=== PATIENT | male | born 1960 | race Caucasian/White ===

== ENCOUNTER 2017-01-27 22:19 | Inpatient (IN) | payer OTHER ==
[~2017-01-27] VITALS: Ht 177.8 cm; Wt 112.0 kg
--- NOTE | 2017-01-27 22:25 | ERD ---
ER Documentation Chief Complaint Chief Complaint chest pain HPI This is a 56-year-old male with a history of hypertension and traumatic aortic dissection requiring a thoracotomy while playing football when he was younger who is now presenting with several hours of midsternal moderate substernal chest pain with lightheadedness, diaphoresis, nausea and dyspnea. The patient was hoping that the symptoms would go away on its own, but he ultimately called an ambulance because they persisted. The patient does not endorse having had a heart attack before, but he is concerned that he could be having a heart attack now. He is quite anxious. He notes that the pain is different from when he had his aortic dissection. He has no pain radiating to the back or neck or arms. The patient denies feeling sick recently. The patient denies fever or chills. The patient has had no headache or vision changes. The patient does not endorse neck or back pain. The patient denies abdominal pain or changes to bowel movements or urination. The patient has had no focal deficits. The patient has had no weakness or numbness or tingling to the face or extremities. The patient was given full dose aspirin and 2 nitro sprays by the paramedics prior to arrival. While his chest pain did not resolve, it did improve and his diaphoresis stopped. The paramedics did obtain a 12-lead that is concerning for STEMI with ST elevations in V1 and 2. ROS All systems reviewed and are negative except as per history of present illness. Allergies Allergies: Coded Allergies: No Known Allergy (Unverified , 01/28/17) PMhx/Soc History of Surgery: Yes (Thoracotomy, aortic dissection repair with stenting) Anesthesia Reaction: No Hx Neurological Disorder: No Hx Respiratory Disorders: No Hx Cardiac Disorders: Yes (Hypertension, aortic dissection) Hx Psychiatric Problems: No Hx Miscellaneous Medical Probl: No FmHx Family History: No coronary disease, No diabetes Physical Exam Vitals Vital Signs Date Time Temp Pulse Resp B/P Pulse Ox O2 Delivery O2 Flow Rate FiO2 01/27/17 22:26 69 18 100/75 98 Physical Exam Const: Mild distress, well-developed, well-nourished Head: Atraumatic Eyes: Normal Conjunctiva. Extraocular movements intact. ENT: Normal External Ears, Nose and Mouth. Neck: Full range of motion. ~ No meningismus. Resp: Clear to auscultation bilaterally Cardio: Regular rate and rhythm, no murmurs Abd: Soft, non tender, non distended. Normal bowel sounds Skin: No petechiae or rashes, + diaphoresis Back: No midline or flank tenderness Ext: No cyanosis, or edema Neur: Awake and alert, oriented 4. Cranial nerves intact. No facial droop. Normal strength and sensation in all extremities. Coordination with finger to nose normal. Psych: Anxious appearing Result Diagram: 01/27/175 01/27/17 2215 Results 24 hrs Laboratory Tests Test 01/27/17 22:15 White Blood Count 13.410^3/ul Red Blood Count 5.8110^6/ul Hemoglobin 17.4g/dl Hematocrit 49.7% Mean Corpuscular Volume 85.5fl Mean Corpuscular Hemoglobin 29.9pg Mean Corpuscular Hemoglobin Concent 35.0g/dl Red Cell Distribution Width 12.9% Platelet Count 36853^3/UL Mean Platelet Volume 11.0fl Neutrophils % 71.8% Lymphocytes % 15.3% Monocytes % 12.4% Eosinophils % 0.0% Basophils % 0.3% Nucleated Red Blood Cells % 0.0/100WBC Neutrophils # 9.610^3/ul Lymphocytes # 2.110^3/ul Monocytes # 1.710^3/ul Eosinophils # 0.010^3/ul Basophils # 0.010^3/ul Nucleated Red Blood Cells # 0.010^3/ul Sodium Level 142mmol/L Potassium Level 3.8mmol/L Chloride Level 104mmol/L Carbon Dioxide Level 30mmol/L Anion Gap 12 Blood Urea Nitrogen 14mg/dl Creatinine 1.10mg/dl Glucose Level 128mg/dl Calcium Level 9.8mg/dl Troponin I 49.900ng/ml Current Medications Medications (Trade) Dose Ordered Sig/Lauren Route PRN Reason Start Time Stop Time Status Last Admin Dose Admin IV Flush 10 ml 10 ml STK-MED ONCE .ROUTE 01/27/17 23:05 01/27/17 23:06 DC 01/27/17 23:22 Sodium Chloride (NS) 100 ml @ ud STK-MED ONCE .ROUTE 01/27/17 23:05 01/27/17 23:06 DC 01/27/17 23:22 Iohexol (Omnipaque 300mg/ ml) 150 ml STK-MED ONCE .ROUTE 01/27/17 23:05 01/27/17 23:06 DC 01/27/17 23:23 Heparin Sodium (Porcine) (Heparin (1000 Units/ml)) 10,000 unit STK-MED ONCE .ROUTE 01/27/17 23:08 01/27/17 23:09 DC Lidocaine (Xylocaine 1% (Mdv) 20 ml) 20 ml STK-MED ONCE .ROUTE 01/27/17 23:08 01/27/17 23:09 DC Iodixanol (Visipaque Locm) 50 ml STK-MED ONCE .ROUTE 01/27/17 23:08 01/27/17 23:09 DC Iodixanol 100 ml 100 ml STK-MED ONCE .ROUTE 01/27/17 23:08 01/27/17 23:09 DC Heparin Sodium/ Sodium Chloride (Heparin 1000 Units/NS (A-Line)) 1,500 ml @ ud STK-MED ONCE .ROUTE 01/27/17 23:08 01/27/17 23:09 DC Fentanyl (Sublimaze) 100 mcg STK-MED ONCE .ROUTE 01/27/17 23:09 01/27/17 23:10 DC Verapamil HCl (Verapamil) 5 mg STK-MED ONCE .ROUTE 01/27/17 23:09 01/27/17 23:10 DC Nitroglycerin 1000 mcg 1,000 mcg STK-MED ONCE .ROUTE 01/27/17 23:09 01/27/17 23:10 DC Sodium Chloride (NS) 500 ml @ ud STK-MED ONCE .ROUTE 01/27/17 23:09 01/27/17 23:10 DC Midazolam HCl (Versed) 2 mg STK-MED ONCE .ROUTE 01/27/17 23:09 01/27/17 23:10 DC Miscellaneous Information (* Miscellaneous Pharmacy Order) HOLD all METFORMIN ... ONCE ONCE XX 01/28/17 00:00 01/28/17 01:13 DC 01/28/17 00:00 Morphine Sulfate (morphine) 2 mg Q2H PRN IV FOR NON CARDIAC PAIN (4-10) 01/28/17 00:00 01/28/17 01:19 Procedures/MDM MDM The patient's presentation warrants further investigation. I am concerned that the patient could be having a heart attack. The paramedics 12-lead was not as impressive as initially reported, but it did demonstrate 1 mm elevations in the 1 and 2. An EKG will be performed immediately in the emergency department. Blood work will also be sent off immediately. LABS The patient's blood work was obtained and reviewed. The patient's CBC shows mild leukocytosis without shift, likely related to a stress reaction.. The patient is afebrile and does not appear systemically ill. I do not suspect a systemic infection. The patient is not anemic today. The patient's platelet count is unremarkable. The patient's CMP shows no signs of metabolic or electrolyte abnormality. The patient has normal renal and hepatic function testing. The patient's troponin is 49. EKG EKG read by me: Rate/Rhythm: Regular rate and rhythm at a rate of 71 Intervals: Normal [facility]: Normal ST elevations in aVR and V2 which are discordant with ST depressions in the inferior leads and T-wave inversions in leads I and aVL concerning for ischemia Impression: Concerning for cardiac ischemia Repeat EKG read by me as well, performed 30 minutes after the original: Rate/Rhythm: Regular rate and rhythm at a rate of 68 Intervals: Normal [facility]: Normal ST elevations in leads I, aVL and V2 with reciprocal ST depressions in the inferior leads of 3 and aVF which is more suspicious for an acute STEMI Impression: Acute STEMI IMAGING CTA chest FINDINGS: No filling defects are identified within the pulmonary arteries to suggest pulmonary artery thrombosis. There is a proximal descending aortic graft with adjacent surgical clips. Thoracic aorta is normal caliber without aneurysm or dissection. There is no mediastinal or hilar lymphadenopathy or mass. Heart is normal size. No pericardial fluid or thickening. There is mild dependent atelectasis. No focal infiltrate. There is no pleural effusion. There is no pneumothorax. There are no fractures. Chest wall is unremarkable. Imaging obtained through the upper abdomen reveals no acute abnormality. IMPRESSION: 1. No evidence for pulmonary embolus. 2. Status post proximal descending aorta graft. No aortic aneurysm or dissection. 3. Mild dependent atelectasis. 4. No focal infiltrate. Electronically viewed and signed by .Melo Mendez MD, on 01/27/2017 23:08 TREATMENT/DISPOSITION The patient's first EKG was obtained immediately and a code STEMI was called after evaluation of this EKG. In discussion with the workers compensation legal secretary on-call, Dr. Hamm, his first EKG was borderline. In order to ensure that it is not related to his previous pathology of an aortic dissection, a CTA of the chest was performed immediately that did not reveal any obvious aortic pathology. When the patient returned, a repeat EKG was obtained that demonstrated progression in the lateral leads of 1 and aVL, which was more ominous. The patient's troponin also came back significantly high. The decision was made to take patient to the Hr Consultant at this time. The patient had already received full dose aspirin prior to arrival to the emergency department. The patient was on his way to the Hr Consultant prior to initiation of heparin. At this time, I feel that the patient requires admission for further evaluation and management. The patient will be admitted to Panel in accordance with the patient's insurance. The patient was accepted by Dr. Zuñiga at 11:18 PM on January 27, 2017 to the ICU after cardiac catheterization. The patient's blood pressure was elevated at greater than 120/80 while in the emergency department. The patient was otherwise stable with no evidence of hypertensive urgency or emergency. The patient will require reevaluation of his blood pressure in the hospital. CRITICAL CARE NOTE Time: 30 minutes excluding all billable procedures. Treatments/Evaluations: Evaluation of the patient's medical record including previous records & current laboratory/imaging studies, close monitoring, potential interventions if hemodynamically unstable or cardiopulmonary decline or neurologic decline, maintaining tight fluid balance, any discussions with the family regarding the patient's status and prognosis. Departure Diagnosis: Primary Impression: ST elevation myocardial infarction (STEMI) Involved coronary artery: unspecified coronary artery Qualified Code: I21.3 - ST elevation myocardial infarction (STEMI), unspecified artery Condition: JOSE Mitchell MD Jan 27, 2017 22:25
[2017-01-27] MEDS ORDERED: SOD CHLORIDE 0.9% 100 ML ONE (23:05)
[2017-01-27] MEDS ORDERED: IOHEXOL 300MG/ML 150 ML BTL ONE (23:05)
[2017-01-27] MEDS ORDERED: LIDOCAINE 1% (MDV) 20 ML INJ ONE (23:08)
[2017-01-27] MEDS ORDERED: IODIXANOL LOCM 50 ML BTL ONE (23:08)
[2017-01-27] MEDS ORDERED: HEPARIN 1000 UNITS/ML 10 ML INJ ONE (23:08)
[2017-01-27] MEDS ORDERED: IODIXANOL LOCM 100 ML BTL ONE (23:08)
--- NOTE | 2017-01-27 23:08 | RADRPT ---
PROCEDURE: CT Chest with IV contrast. CLINICAL INDICATION: Chest pain. TECHNIQUE: CT scan of the chest was performed on a multidetector scanner. The patient was scanned following the uncomplicated intravenous administration of 100 cc of Omnipaque-300 contrast. 3D, co hussain and sagittal reformatted images were obtained from the axial source images. Images were review ed on a high-resolution PACS workstation. The total exam CTDlvol = 90 mGy and DLP = 768 mGy-cm. One of the following 3 dose reduction techniques were used: Automated exposure control; adjustment of th e mA and/or kV according to patient size; or use of iterative reconstruction technique. COMPARISON: None available FINDINGS: No filling defects are identified within the pulmonary arteries to suggest pulmonary artery thrombos is. There is a proximal descending aortic graft with adjacent surgical clips. Thoracic aorta is nor mal caliber without aneurysm or dissection. There is no mediastinal or hilar lymphadenopathy or mas s. Heart is normal size. No pericardial fluid or thickening. There is mild dependent atelectasis. No focal infiltrate. There is no pleural effusion. There is no pneumothorax. There are no fractures. Chest wall is unremarkable. Imaging obtained through the upper abdomen reveals no acute abnormality. IMPRESSION: 1. No evidence for pulmonary embolus. 2. Status post proximal descending aorta graft. No aortic aneurysm or dissection. 3. Mild dependent atelectasis. 4. No focal infiltrate. RPTAT: HMVK .Melo Mendez MD, MD Date Time Electronically viewed and signed by .Melo Mendez MD, MD on 01/27/2017 23:08 .K/
[2017-01-27] MEDS ORDERED: MIDAZOLAM 1 MG/ML 2 ML INJ ONE (23:09)
[2017-01-27] MEDS ORDERED: VERAPAMIL 5 MG INJ ONE (23:09)
[2017-01-27] MEDS ORDERED: FENTAnyl 50 MCG/ML VIAL ONE (23:09)
[2017-01-27] MEDS ORDERED: SOD CHLORIDE 0.9% 500 ML ONE (23:09)
[2017-01-27] MEDS ORDERED: NITROGLYCERIN (IC) 100 MCG/ML INJ ONE (23:09)
[2017-01-28] VITALS (22 sets, daily range): BP systolic 118–150; BP diastolic 71–118; PULSE 62–75; RESP 17–24; Ht 177.8 cm; Wt 112.0 kg
--- NOTE | 2017-01-28 00:15 | CONS ---
Date/Time of Note Date/Time of Note DATE: 01/28/17 TIME: 00:15 Assessment/Plan Assessment/Plan Chief Complaint/Hosp Course Lateral STEMI: No obstructive lesions were found but likely a real event as slightly slow flow in LAD with LV gram showing LAD territory wall motion abnormalities and troponin eventually 49, which would be consistent with either spontaneous recannulization or spasm. CAD: no obstructive lesions found Ischemic cardiomyopathy: EF 40-45% by LV-gram with LAD territory WMA H/o proximal descending thoracic aorta repair for traumatic dissection HTN -continue ASA 81mg indefinitely -plavix 75mg one year though ok to stop for procedures as no stent -lipitor -coreg -ACEI/ARB if renal function stable -echo -Utox (though pt adamantly denies drug use) Problems: Consultation Date/Type/Reason Admit Date/Time Date of Consultation: Jan 28, 2017 Referring Provider: JOSE SHAH MD Hx of Present Illness 56 yo M with a h/o traumatic aortic dissection s/p surgical repair 40 years ago , HTN, who presented with chest pain. The EKG in the field showed ST elevation V1 and V2 for which the pt was brought for possible cath. On arrival he only had borderline ST elevation in lead V2 and ST depression inferior leads as well as LALY in aVR. Due to his prior aortic dissection/repair a CT was obtained to rule out aneurysm and/or dissection. In the meantime a repeat EKG showed ST elevation leads I and aVL so once his CT was negative for dissection, he was taken to the cardiac catheterization technician for emergent cath. Cath showed nonobstructive CAD but LAD territory wall motion abnormalities and trop eventually came back at 49. Pt apparently was doing well until this am when he started to have chest pain. He denies drug abuse. He was having chest pain on the cath table but this resolved before injection of the coronaries and he remained asymptomatic. per HPI Past Medical History per HPI Exam/Review of Systems Vital Signs Vitals Vital Signs Date Time Temp Pulse Resp B/P Pulse Ox O2 Delivery O2 Flow Rate FiO2 01/27/17 22:26 69 18 100/75 98 Exam Constitutional: alert, oriented Psych: nl mood/affect, no complaints Head: atraumatic, normocephalic Neck: No jvd Respiratory: clear to auscultation, No crackles/rales Cardiovascular: regular rate and rhythm, systolic murmur (2/6 USMAN), No edema Gastrointestinal: non-tender, soft Extremities: normal pulses Neurological: nl mental status, nl speech Skin: No rash or lesions Results Result Diagram: 01/27/17221401/27/172214 Results 24 hrs Laboratory Tests Test 01/27/17 22:15 White Blood Count 13.4 H Red Blood Count 5.81 Hemoglobin 17.4 Hematocrit 49.7 Mean Corpuscular Volume 85.5 Mean Corpuscular Hemoglobin 29.9 Mean Corpuscular Hemoglobin Concent 35.0 Red Cell Distribution Width 12.9 Platelet Count 278 Mean Platelet Volume 11.0 H Neutrophils % 71.8 Lymphocytes % 15.3 Monocytes % 12.4 H Eosinophils % 0.0 Basophils % 0.3 Nucleated Red Blood Cells % 0.0 Neutrophils # 9.6 H Lymphocytes # 2.1 Monocytes # 1.7 H Eosinophils # 0.0 Basophils # 0.0 Nucleated Red Blood Cells # 0.0 Sodium Level 142 Potassium Level 3.8 Chloride Level 104 Carbon Dioxide Level 30 Anion Gap 12 Blood Urea Nitrogen 14 Creatinine 1.10 Glucose Level 128 Calcium Level 9.8 Troponin I 49.900 *H RANJIT CHACON Jan 28, 2017 00:15
--- NOTE | 2017-01-28 00:15 | OPR ---
Date/Time of Note Date/Time of Note DATE: 01/28/17 TIME: 00:01 Operative Report Preoperative Diagnosis lateral STEMI Postoperative Diagnosis same, nonobstructive CAD, cardiomyopathy Surgeon see signature line Turn Down Attendant none Anesthesia Type: moderate sedation Estimated Blood Loss: minimal Transfusion none Specimen none Grafts/Implants none Complications none Procedure Description Procedure Date:01/27/2017 [employer] Director/surgeon:Chito Hamm MD. Procedures Performed: 1)Left heart catheterization with selective left and right coronary angiography. 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 The EKG in the field showed ST elevation V1 and V2 for which the pt was brought for possible cath. On arrival he only had borderline ST elevation in lead V2 and ST depression inferior leads as well as LALY in aVR. Due to his prior aortic dissection/repair a CT was obtained to rule out aneurysm and/or dissection. In the meantime a repeat EKG showed ST elevation leads I and aVL so once his CT was negative for dissection, he was taken to the laboratory miller for emergent cath. Description of Procedure: After informed consent, the patient was brought to the cardiac catheterization lab. The procedure site was prepped and draped in usual manner. The patient was premedicated with versed 1 mg and fentanyl 25 mcg. 3 mL lidocaine was injected into the right wrist. Next using the posterior wall technique, the 6/ 5 kiswahili sheath was inserted into the right radial artery. Next using the JR4 and JL 3.0 guide, selective angiography of the left and right coronary arteries were obtained. The pigtail was then advanced into the ventricle and hemodynamics obtained. Left ventricle angiography was obtained in 2 views. Next all equipment was removed and hemostasis was obtained by TR band. Findings: Anatomy/Hemodynamics: Left main: normal LAD: mild plaquing with slightly slow flow but no obstructive lesions Diagonal 1 normal Diagonal 2 tapers to a very small vessel and has proximal 40-50% Circumflex: 20-30% plaquing Obtuse marginal: luminal irregularities RCA:20-30% plaquing PDA:luminal irregularities PLV:luminal irregularities LV angiography: EF 40-45%, anterior and apical severe hypokinesis LV-Ao:no gradient LVEDP: 21 mmHg Contrast used: 120 mL Fluoroscopy time: 4.9 min Estimated blood loss<10 mL. Specimen: none Grafts/implants: none Complications: none Assessment: Lateral STEMI: No obstructive lesions were found but likely a real event as slightly slow flow in LAD with LV gram showing LAD territory wall motion abnormalities and troponin eventually 49, which would be consistent with either spontaneous recannulization or spasm. CAD: no obstructive lesions found Ischemic cardiomyopathy: EF 40-45% by LV-gram with LAD territory WMA H/o proximal descending thoracic aorta repair for traumatic dissection HTN Plan: -continue ASA 81mg indefinitely -plavix 75mg one year though ok to stop for procedures as no stent -lipitor -coreg -ACEI/ARB if renal function stable -Utox (though pt adamantly denies drug use) CHITO HAMM Jan 28, 2017 00:15
--- NOTE | 2017-01-28 00:15 | OPR ---
Date/Time of Note Date/Time of Note DATE: 01/28/17 TIME: 00:01 Operative Report Preoperative Diagnosis lateral STEMI Postoperative Diagnosis same, nonobstructive CAD, cardiomyopathy Surgeon see signature line Injection Machine Operator none Anesthesia Type: moderate sedation Estimated Blood Loss: minimal Transfusion none Specimen none Grafts/Implants none Complications none Procedure Description Procedure Date:01/27/2017 Photo Intern/surgeon:Chito Hamm MD. Procedures Performed: 1)Left heart catheterization with selective left and right coronary angiography. 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 The EKG in the field showed ST elevation V1 and V2 for which the pt was brought for possible cath. On arrival he only had borderline ST elevation in lead V2 and ST depression inferior leads as well as LALY in aVR. Due to his prior aortic dissection/repair a CT was obtained to rule out aneurysm and/or dissection. In the meantime a repeat EKG showed ST elevation leads I and aVL so once his CT was negative for dissection, he was taken to the geotechnical laboratory technician for emergent cath. Description of Procedure: After informed consent, the patient was brought to the cardiac catheterization lab. The procedure site was prepped and draped in usual manner. The patient was premedicated with versed 1 mg and fentanyl 25 mcg. 3 mL lidocaine was injected into the right wrist. Next using the posterior wall technique, the 6/ 5 spanish sheath was inserted into the right radial artery. Next using the JR4 and JL 3.0 guide, selective angiography of the left and right coronary arteries were obtained. The pigtail was then advanced into the ventricle and hemodynamics obtained. Left ventricle angiography was obtained in 2 views. Next all equipment was removed and hemostasis was obtained by TR band. Findings: Anatomy/Hemodynamics: Left main: normal LAD: mild plaquing with slightly slow flow but no obstructive lesions Diagonal 1 normal Diagonal 2 tapers to a very small vessel and has proximal 40-50% Circumflex: 20-30% plaquing Obtuse marginal: luminal irregularities RCA:20-30% plaquing PDA:luminal irregularities PLV:luminal irregularities LV angiography: EF 40-45%, anterior and apical severe hypokinesis LV-Ao:no gradient LVEDP: 21 mmHg Contrast used: 120 mL Fluoroscopy time: 4.9 min Estimated blood loss<10 mL. Specimen: none Grafts/implants: none Complications: none Assessment: Lateral STEMI: No obstructive lesions were found but likely a real event as slightly slow flow in LAD with LV gram showing LAD territory wall motion abnormalities and troponin eventually 49, which would be consistent with either spontaneous recannulization or spasm. CAD: no obstructive lesions found Ischemic cardiomyopathy: EF 40-45% by LV-gram with LAD territory WMA H/o proximal descending thoracic aorta repair for traumatic dissection HTN Plan: -continue ASA 81mg indefinitely -plavix 75mg one year though ok to stop for procedures as no stent -lipitor -coreg -ACEI/ARB if renal function stable -Utox (though pt adamantly denies drug use) CHITO HAMM Jan 28, 2017 00:15
--- NOTE | 2017-01-28 00:15 | OPR ---
Date/Time of Note Date/Time of Note DATE: 01/28/17 TIME: 00:01 Operative Report Preoperative Diagnosis lateral STEMI Postoperative Diagnosis same, nonobstructive CAD, cardiomyopathy Surgeon see signature line Senior Sales Associate none Anesthesia Type: moderate sedation Estimated Blood Loss: minimal Transfusion none Specimen none Grafts/Implants none Complications none Procedure Description Procedure Date:01/27/2017 Wind Energy Engineer/surgeon:Chito Hamm MD. Procedures Performed: 1)Left heart catheterization with selective left and right coronary angiography. 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 The EKG in the field showed ST elevation V1 and V2 for which the pt was brought for possible cath. On arrival he only had borderline ST elevation in lead V2 and ST depression inferior leads as well as LALY in aVR. Due to his prior aortic dissection/repair a CT was obtained to rule out aneurysm and/or dissection. In the meantime a repeat EKG showed ST elevation leads I and aVL so once his CT was negative for dissection, he was taken to the cleaning laborer for emergent cath. Description of Procedure: After informed consent, the patient was brought to the cardiac catheterization lab. The procedure site was prepped and draped in usual manner. The patient was premedicated with versed 1 mg and fentanyl 25 mcg. 3 mL lidocaine was injected into the right wrist. Next using the posterior wall technique, the 6/ 5 icelandic sheath was inserted into the right radial artery. Next using the JR4 and JL 3.0 guide, selective angiography of the left and right coronary arteries were obtained. The pigtail was then advanced into the ventricle and hemodynamics obtained. Left ventricle angiography was obtained in 2 views. Next all equipment was removed and hemostasis was obtained by TR band. Findings: Anatomy/Hemodynamics: Left main: normal LAD: mild plaquing with slightly slow flow but no obstructive lesions Diagonal 1 normal Diagonal 2 tapers to a very small vessel and has proximal 40-50% Circumflex: 20-30% plaquing Obtuse marginal: luminal irregularities RCA:20-30% plaquing PDA:luminal irregularities PLV:luminal irregularities LV angiography: EF 40-45%, anterior and apical severe hypokinesis LV-Ao:no gradient LVEDP: 21 mmHg Contrast used: 120 mL Fluoroscopy time: 4.9 min Estimated blood loss<10 mL. Specimen: none Grafts/implants: none Complications: none Assessment: Lateral STEMI: No obstructive lesions were found but likely a real event as slightly slow flow in LAD with LV gram showing LAD territory wall motion abnormalities and troponin eventually 49, which would be consistent with either spontaneous recannulization or spasm. CAD: no obstructive lesions found Ischemic cardiomyopathy: EF 40-45% by LV-gram with LAD territory WMA H/o proximal descending thoracic aorta repair for traumatic dissection HTN Plan: -continue ASA 81mg indefinitely -plavix 75mg one year though ok to stop for procedures as no stent -lipitor -coreg -ACEI/ARB if renal function stable -Utox (though pt adamantly denies drug use) CHITO HAMM Jan 28, 2017 00:15
[2017-01-28] MEDS ORDERED: CLOPIDOGREL 300 MG TAB ONE (00:16)
[2017-01-28] MEDS ORDERED: SOD CHLORIDE 0.9% 1,000 ML IV SCH (01:00)
[2017-01-28] MEDS ORDERED: ACETAMINOPHEN 650MG/20.3ML CUP PO PRN (01:00)
[2017-01-28] MEDS ORDERED: morphine 2 MG INJ IV PRN (01:00)
[2017-01-28] MEDS: morphine 2 MG INJ IV PRN ×4 (01:19→09:11)
[2017-01-28] MEDS ORDERED: KETOROLAC 30 MG INJ IV STA (03:17)
[2017-01-28] MEDS ORDERED: DIAZEPAM 5 MG/ML SYG IV ONE (03:30)
[2017-01-28] MEDS: PANTOPRAZOLE 40 MG INJ IV SCH (06:05)
--- NOTE | 2017-01-28 06:12 | HP ---
Date/Time of Note Date/Time of Note DATE: 01/28/17 TIME: 05:47 Assessment/Plan VTE Prophylaxis VTE Prophylaxis Intervention: SCD's Lines/Catheters IV Catheter Type [facility]from [facility]): Peripheral IV Urinary Cath still in place: No Assessment/Plan Chief Complaint/Hosp Course This is a 56-year-old male being admitted to the ICU floor for: #1 acute STEMI: Cath report: Showed : No obstructive lesions were found but likely a real event as slightly slow flow in LAD with LV gram showing LAD territory wall motion abnormalities and troponin eventually 49, which would be consistent with either spontaneous recannulization or spasm. No obstructive lesions were found. EF 40-45% by LV-gram with LAD territory WMA. Patient did have an initial troponin elevation of 49. Will continue to trend cardiac enzymes. Will order post cath EKG. as per cardiology recommendations patient will be started on aspirin 81 mg,plavix 75mg one year though ok to stop for procedures as no stent, Lipitor, Coreg. Patient's renal function remains stable can also initiate MARNI/ARB. Will also obtain a urine drug screen. 2D echocardiogram in the a.m. Cardiology consultation. #2 hypertension: Need to confirm patient's home medications. Continue to monitor his blood pressures. #3 hypothyroidism: We will need to confirm patient's home medication and dosage. Will check a TSH level. #4 DVT GI prophylaxis: SCDs, Protonix Further treatment strategy will be implemented as per the clinical course Greater than 35 minutes of critical care time was spent on the care and management of this patient. Problems: HPI/ROS Admit Date/Time Admit Date/Time Hx of Present Illness Chief complaint: Left-sided chest pain The following history was obtained from the ED physician documentation as well as the child watch attendant and from my own personal exam with the patient. This is a 56-year-old male with a history of hypertension and traumatic aortic dissection requiring a thoracotomy while playing football when he was younger who presented with several hours of left-sided chest pain with lightheadedness, diaphoresis, nausea and dyspnea. Patient stated that his pain started when he was at work around 10 AM yesterday and he dealt with it throughout the day at work. The patient was hoping that the symptoms would go away on its own, but he ultimately called an ambulance because they persisted. The patient does not endorse having had a heart attack before, but he is concerned that he could be having a heart attack now. As per the ED physician documentation when he did arrive he is quite anxious and he did state that his pain was quite different than the one that he experienced when he had his aortic dissection. He was not complaining of any back pain radiating to the back or neck or to the arms. The patient was given full dose aspirin and 2 nitro sprays by the paramedics prior to arrival. While his chest pain did not resolve, it did improve and his diaphoresis stopped. The paramedics did obtain a 12-lead that is concerning for STEMI with ST elevations in V1 and 2. STEMI protocol was initiated and patient was taken to the [facility] Loss [facility] Manager by the child watch attendant on-call. [facility] Loss Centre Manager report : No obstructive lesions were found but likely a real event as slightly slow flow in LAD with LV gram showing LAD territory wall motion abnormalities and troponin eventually 49, which would be consistent with either spontaneous recannulization or spasm. Patient was then subsequently transferred to the ICU for closer monitoring. Upon my examination patient was sitting in bed he stated that he still was experiencing left-sided chest pain. He was denying any shortness of breath. He stated his pain was 7 out of 10 and on the left side without any radiation. Upon physical examination when I palpated his left chest he retracted to the pain. Upon reexamination patient again retracted to the pain upon palpation of the chest. Patient at that time was not diaphoretic or short of breath or appear in any acute distress. Allergies: NKDA Medications: See LUCIO GRAHAM Const: As per HPI Eyes : No pain discharge or redness or change in visual acuity ENT: No pain, sore throat, congestion, congestion, dysphagia or discharge Respiratory: No shortness of breath, cough, sputum, wheezing, or pleuritic pain Cardiovascular: As per HPI GI : no change in appetite, abdominal pain, nausea, vomiting, diarrhea, constipation, or change in the color his stool Genitourinary: No dysuria, hematuria, flank pain , discharge or CVA tenderness Musculoskeletal: As per HPI Skin: No rash, bruising or hives Neuro: No headache, dizziness, syncope, seizure, focal weakness Endocrine: No polyuria, polydipsia, temperature intolerance Psych: No hallucination, depression, anxiety or suicidal ideation Psychological: nl mood/affect, no complaints PMH/Family/Social Past Medical History Hypertension, hypothyroidism Past Surgical History Aortic dissection repair, cardiac cath today, bilateral eye surgeries Family History Significant Family History: other (Thyroid disorder) Social History Alcohol Use: occasionally Smoking Status: Current every day smoker (Half pack per day 30 years) Drug Use: none Exam/Review of Systems Vital Signs Vitals Vital Signs Date Time Temp Pulse Resp B/P Pulse Ox O2 Delivery O2 Flow Rate FiO2 01/28/17 04:00 75 01/28/17 04:00 98.4 21 125/88 95 Room Air 01/28/17 01:30 2.0 Intake and Output 01/27/17 01/27/17 01/28/17 15:00 23:00 07:00 Intake Total 180 ml Balance 180 ml Exam Exam General: She was seen and examined at the bedside after undergoing cardiac catheterization, he was complaining of pain to his left chest however he was not in any acute distress HEENT: Atraumatic, normocephalic. The pupils are equal, round and reactive. Extraocular motor are intact Neck: Supple with full range of motion. No rigidity or meningismus Chest: Tenderness to palpation of the left anterior chest Lungs: Clear to auscultation bilaterally no crackles rales or wheezing Heart: Normal S1-S2, Regular rhythm and rate. Systolic murmur Abdomen: Soft , nontender, nondistended , bowel sounds are present. No guarding no rebound tenderness , No masses or organomegaly. No costovertebral temporal angle mass Extremities: Normal to inspection, no edema no cyanosis Neurologic: Normal mental status, speech normal, cranial nerves II through XII are intact, motor and sensory are intact, no focal weakness Additional Comments PROCEDURE: CT Chest with IV contrast. CLINICAL INDICATION: Chest pain. TECHNIQUE: CT scan of the chest was performed on a multidetector scanner. The patient was scanned following the uncomplicated intravenous administration of 100 cc of Omnipaque-300 contrast. 3D, coronal and sagittal reformatted images were obtained from the axial source images. Images were reviewed on a high-resolution PACS workstation. The total exam CTDlvol = 90 mGy and DLP = 768 mGy-cm. One of the following 3 dose reduction techniques were used: Automated exposure control; adjustment of the mA and/or kV according to patient size; or use of iterative reconstruction technique. COMPARISON: None available FINDINGS: No filling defects are identified within the pulmonary arteries to suggest pulmonary artery thrombosis. There is a proximal descending aortic graft with adjacent surgical clips. Thoracic aorta is normal caliber without aneurysm or dissection. There is no mediastinal or hilar lymphadenopathy or mass. Heart is normal size. No pericardial fluid or thickening. There is mild dependent atelectasis. No focal infiltrate. There is no pleural effusion. There is no pneumothorax. There are no fractures. Chest wall is unremarkable. Imaging obtained through the upper abdomen reveals no acute abnormality. IMPRESSION: 1. No evidence for pulmonary embolus. 2. Status post proximal descending aorta graft. No aortic aneurysm or dissection. 3. Mild dependent atelectasis. 4. No focal infiltrate. RPTAT: HMVK .Melo Mendez MD, Date Time Electronically viewed and signed by .Melo Mendez MD, on 01/27/2017 23:08 .K/ CC: JOSE SHAH MD EKG : Rate/Rhythm: Regular rate and rhythm at a rate of 71 Intervals: Normal [place]: Normal ST elevations in aVR and V2 which are discordant with ST depressions in the inferior leads and T-wave inversions in leads I and aVL concerning for ischemia Impression: Concerning for cardiac ischemia Repeat EKG, performed 30 minutes after the original: Rate/Rhythm: Regular rate and rhythm at a rate of 68 Intervals: Normal [place]: Normal ST elevations in leads I, aVL and V2 with reciprocal ST depressions in the inferior leads of 3 and aVF which is more suspicious for an acute STEMI Impression: Acute STEMI As per ED physician documentation Labs Result Diagram: 01/27/17221401/27/172214 Medications Medications Current Medications Morphine Sulfate (morphine) 2 mg Q2H PRN IV FOR NON CARDIAC PAIN (4-10) Last administered on 01/28/17t 05:00; Admin Dose 2 MG; Start 01/28/17 at 00:00 Aspirin (Aspirin) 81 mg DAILY PO ; Start 01/28/17 at 09:00 Clopidogrel Bisulfate 75 mg 75 mg DAILY PO ; Start 01/28/17 at 09:00 Sodium Chloride (NS) 1,000 ml @ 60 mls/hr [id number] IV Last administered on 01/28t 01:18; Admin Dose 60 MLS/HR; Start 01/28/17 at 01:00 Acetaminophen (Tylenol Liquid) 650 mg Q6H PRN PO PAIN LEVEL 1-3 OR FEVER; Start 01/28/17 at 01:00 Morphine Sulfate (morphine) 2 mg Q4H PRN IV PAIN LEVEL 7-10; Start 01/28/17 at 01:00 Pantoprazole (Protonix Iv) 40 mg DAILY@06 IV ; Start 01/28/17 at 06:00 LITO MOSER Jan 28, 2017 05:58
[2017-01-28] MEDS: CLOPIDOGREL 75 MG TAB PO SCH (08:54)
[2017-01-28] MEDS: ASPIRIN 81 MG TAB PO SCH (08:54)
[2017-01-28] MEDS ORDERED: LISINOPRIL 5 MG TAB PO SCH (09:00)
--- NOTE | 2017-01-28 09:13 | CONS ---
Date/Time of Note Date/Time of Note DATE: 01/28/17 TIME: 09:09 Assessment/Plan Assessment/Plan Chief Complaint/Hosp Course Lateral STEMI: No obstructive lesions were found but likely a real event as slightly slow flow in LAD with LV gram showing LAD territory wall motion abnormalities and troponin eventually 49 (now downtrending), which would be consistent with either spontaneous recannulization or spasm. CAD: no obstructive lesions found Ischemic cardiomyopathy: EF 40-45% by LV-gram with LAD territory WMA H/o proximal descending thoracic aorta repair for traumatic dissection HTN -continue ASA 81mg indefinitely -plavix 75mg one year though ok to stop for procedures as no stent -lipitor 80mg -coreg 6.25mg -lisinopril 5mg -echo -Utox (though pt adamantly denies drug use) Problems: Consultation Date/Type/Reason Admit Date/Time Jan 28, 2017 at 00:05 Initial Consult Date 01/28/17 Referring Provider: JOSE SHAH MD 24 HR Interval Summary Free Text/Dictation No on events. No longer has the chest pain that brought him into the hospital but still has an "ache". Also has mild SOB. Trops trending down. AM EKG with improved inferior ST depressions and residual q waves and resolving LALY in lateral leads. Exam/Review of Systems Vital Signs Vitals Vital Signs Date Time Temp Pulse Resp B/P Pulse Ox O2 Delivery O2 Flow Rate FiO2 01/28/17 06:00 71 22 144/97 97 Room Air 01/28/17 04:00 98.4 01/28/17 01:30 2.0 Intake and Output 01/27/17 01/27/17 01/28/17 15:00 23:00 07:00 Intake Total 500 ml Output Total 350 ml Balance 150 ml Exam Constitutional: alert, oriented Head: atraumatic, normocephalic Neck: No jvd Respiratory: crackles/rales, No clear to auscultation (mild crackles ) Cardiovascular: regular rate and rhythm, No edema, No systolic murmur Gastrointestinal: non-tender, soft Extremities: normal pulses Neurological: nl mental status, nl speech Results Result Diagram: 01/28/17 0600 01/28/17 0600 Results 24 hrs Laboratory Tests Test 01/27/17 22:15 01/28/17 06:00 01/28/17 06:01 White Blood Count 13.4 H 11.7 H Red Blood Count 5.81 5.40 Hemoglobin 17.4 15.8 Hematocrit 49.7 46.4 Mean Corpuscular Volume 85.5 85.9 Mean Corpuscular Hemoglobin 29.9 29.3 Mean Corpuscular Hemoglobin Concent 35.0 34.1 Red Cell Distribution Width 12.9 13.3 Platelet Count 278 212 # Mean Platelet Volume 11.0 H 11.3 H Neutrophils % 71.8 74.1 Lymphocytes % 15.3 11.8 L Monocytes % 12.4 H 13.6 H Eosinophils % 0.0 0.0 Basophils % 0.3 0.3 Nucleated Red Blood Cells % 0.0 0.0 Neutrophils # 9.6 H 8.7 H Lymphocytes # 2.1 1.4 Monocytes # 1.7 H 1.6 H Eosinophils # 0.0 0.0 Basophils # 0.0 0.0 Nucleated Red Blood Cells # 0.0 0.0 Sodium Level 142 139 Potassium Level 3.8 4.0 Chloride Level 104 105 Carbon Dioxide Level 30 28 Anion Gap 12 10 Blood Urea Nitrogen 14 15 Creatinine 1.10 0.98 Glucose Level 128 115 Calcium Level 9.8 9.2 Troponin I 49.900 *H 38.400 *H Hemoglobin A1c 5.9 Magnesium Level 1.9 Total Bilirubin 1.0 Direct Bilirubin 0.00 Indirect Bilirubin 1.0 Aspartate Amino Transf (AST/SGOT) 253 H Alanine Aminotransferase (ALT/SGPT) 76 H Alkaline Phosphatase 79 Total Protein 7.2 Albumin 3.8 Globulin 3.40 H Albumin/Globulin Ratio 1.11 Creatine Kinase 4883 H Creatine Kinase Index 1.2 Creatinine Kinase MB (Mass) 59.90 H Thyroid Stimulating Hormone (TSH) 1.590 Medications Medications Current Medications Morphine Sulfate (morphine) 2 mg Q2H PRN IV FOR NON CARDIAC PAIN (4-10) Last administered on 01/28/17 07:02; Admin Dose 2 MG; Start 01/28/17 at 00:00 Aspirin (Aspirin) 81 mg DAILY PO ; Start 01/28/17 at 09:00 Clopidogrel Bisulfate 75 mg 75 mg DAILY PO ; Start 01/28/17 at 09:00 Sodium Chloride (NS) 1,000 ml @ 60 mls/hr [id number] IV Last administered on 01/28 01:18; Admin Dose 60 MLS/HR; Start 01/28/17 at 01:00 Acetaminophen (Tylenol Liquid) 650 mg Q6H PRN PO PAIN LEVEL 1-3 OR FEVER; Start 01/28/17 at 01:00 Morphine Sulfate (morphine) 2 mg Q4H PRN IV PAIN LEVEL 7-10; Start 01/28/17 at 01:00 Pantoprazole (Protonix Iv) 40 mg DAILY@06 IV Last administered on 01/28/17 06: 05; Admin Dose 40 MG; Start 01/28/17 at 06:00 RANJIT CHACON Jan 28, 2017 09:13
--- NOTE | 2017-01-28 10:01 | RADRPT ---
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 Physician: CHITO HAMM Quality: Good Procedures: Transthoracic echocardiogram with complete 2D, M-Mode, and doppler examination. Indications: STEMI. 2D/M Mode Doppler Measurement Value Normal Ranges Measurement Value Normal Ranges LVIDd 2D 5.0 3.5 - 5.6 cm AV Peak [place] 1.0 m/sec LVIDs 2D 2.4 2.1 - 4.1 cm AV Peak PG 4.3 mmHg LVPWd 2D 1.3 0.6 - 1.1 cm AI Peak PG 31.7 mmHg IVSd 2D 1.3 0.6 - 1.1 cm AI Peak [place] 2.8 m/sec AoR Diam 2D 3.4 2.0 - 3.7 cm AI PHT 553.4 msec EDV 2D 115.8 cm3 LVOT Peak [place] 0.9 m/sec ESV 2D 13.6 cm3 LVOT Peak PG 3.0 mmHg MV E Peak [place] 0.4 m/sec MV A Peak [place] 0.6 m/sec MV E/A 0.6 MV Decel Time 184 msec MV Decel [place] 2 MV E/A 0.6 TR Peak [place] 1.9 m/sec TR Peak PG 14.3 mmHg Findings Left Ventricle: Normal left ventricular cavity size. Mild concentric left ventricular hypertrophy. Moderate left ventricular systolic dysfunction. Ejection fraction is visually estimated at 40 %. Tissue Doppler/Mitral Doppler indices are within normal limits. Severe hypokinesis/akinesis of the mid to distal septum and apex. Anterior wall is not well seen. Right Ventricle: Normal right ventricular size. Normal right ventricular systolic function. Left Atrium: The left atrium is normal in size. Right Atrium: The right atrium is normal in size. Mitral Valve: Normal appearance and function of the mitral valve with trace physiologic regurgitation. Aortic Valve: Normal appearance of the aortic valve. No significant aortic stenosis or insufficiency. Tricuspid Valve: Unable to obtain RVSP due to minimal presence of tricuspid regurgitation. No evidence of tricuspid regurgitation. Pericardium: Normal pericardium with no significant pericardial effusion. Aorta: Normal aortic root. IVC: Normal size and normal respiratory collapse consistent with normal right atrial pressure. Conclusions Technically difficult study with poor endocardial visualization. Normal left ventricular cavity size. Mild concentric left ventricular hypertrophy. Moderate left ventricular systolic dysfunction. Ejection fraction is visually estimated at 40 %. Tissue Doppler/Mitral Doppler indices are within normal limits. Severe hypokinesis/akinesis of the mid to distal septum and apex. Anterior wall is not well seen. No significant valvular stenosis or regurgitation seen. Unable to obtain RVSP due to minimal presence of tricuspid regurgitation. Normal size and normal respiratory collapse consistent with normal right atrial pressure. Electronically Signed By: Chito Hamm 28-Jan-2017 10:00:45 -0800 Patient Name: ELSA CLARKE Study Date: 28-Jan-2017 [id number]
--- NOTE | 2017-01-28 10:01 | RADRPT ---
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 Physician: CHITO HAMM Quality: Good Procedures: Transthoracic echocardiogram with complete 2D, M-Mode, and doppler examination. Indications: STEMI. 2D/M Mode Doppler Measurement Value Normal Ranges Measurement Value Normal Ranges LVIDd 2D 5.0 3.5 - 5.6 cm AV Peak [place] 1.0 m/sec LVIDs 2D 2.4 2.1 - 4.1 cm AV Peak PG 4.3 mmHg LVPWd 2D 1.3 0.6 - 1.1 cm AI Peak PG 31.7 mmHg IVSd 2D 1.3 0.6 - 1.1 cm AI Peak [place] 2.8 m/sec AoR Diam 2D 3.4 2.0 - 3.7 cm AI PHT 553.4 msec EDV 2D 115.8 cm3 LVOT Peak [place] 0.9 m/sec ESV 2D 13.6 cm3 LVOT Peak PG 3.0 mmHg MV E Peak [place] 0.4 m/sec MV A Peak [place] 0.6 m/sec MV E/A 0.6 MV Decel Time 184 msec MV Decel Ada 2 MV E/A 0.6 TR Peak [place] 1.9 m/sec TR Peak PG 14.3 mmHg Findings Left Ventricle: Normal left ventricular cavity size. Mild concentric left ventricular hypertrophy. Moderate left ventricular systolic dysfunction. Ejection fraction is visually estimated at 40 %. Tissue Doppler/Mitral Doppler indices are within normal limits. Severe hypokinesis/akinesis of the mid to distal septum and apex. Anterior wall is not well seen. Right Ventricle: Normal right ventricular size. Normal right ventricular systolic function. Left Atrium: The left atrium is normal in size. Right Atrium: The right atrium is normal in size. Mitral Valve: Normal appearance and function of the mitral valve with trace physiologic regurgitation. Aortic Valve: Normal appearance of the aortic valve. No significant aortic stenosis or insufficiency. Tricuspid Valve: Unable to obtain RVSP due to minimal presence of tricuspid regurgitation. No evidence of tricuspid regurgitation. Pericardium: Normal pericardium with no significant pericardial effusion. Aorta: Normal aortic root. IVC: Normal size and normal respiratory collapse consistent with normal right atrial pressure. Conclusions Technically difficult study with poor endocardial visualization. Normal left ventricular cavity size. Mild concentric left ventricular hypertrophy. Moderate left ventricular systolic dysfunction. Ejection fraction is visually estimated at 40 %. Tissue Doppler/Mitral Doppler indices are within normal limits. Severe hypokinesis/akinesis of the mid to distal septum and apex. Anterior wall is not well seen. No significant valvular stenosis or regurgitation seen. Unable to obtain RVSP due to minimal presence of tricuspid regurgitation. Normal size and normal respiratory collapse consistent with normal right atrial pressure. Electronically Signed By: Chito Hamm 28-Jan-2017 10:00:45 -0800 Patient Name: ELSA CLARKE Study Date: 28-Jan-2017 [id number]
--- NOTE | 2017-01-28 10:01 | RADRPT ---
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 Physician: CHITO HAMM Quality: Good Procedures: Transthoracic echocardiogram with complete 2D, M-Mode, and doppler examination. Indications: STEMI. 2D/M Mode Doppler Measurement Value Normal Ranges Measurement Value Normal Ranges LVIDd 2D 5.0 3.5 - 5.6 cm AV Peak [place] 1.0 m/sec LVIDs 2D 2.4 2.1 - 4.1 cm AV Peak PG 4.3 mmHg LVPWd 2D 1.3 0.6 - 1.1 cm AI Peak PG 31.7 mmHg IVSd 2D 1.3 0.6 - 1.1 cm AI Peak [place] 2.8 m/sec AoR Diam 2D 3.4 2.0 - 3.7 cm AI PHT 553.4 msec EDV 2D 115.8 cm3 LVOT Peak [place] 0.9 m/sec ESV 2D 13.6 cm3 LVOT Peak PG 3.0 mmHg MV E Peak [place] 0.4 m/sec MV A Peak [place] 0.6 m/sec MV E/A 0.6 MV Decel Time 184 msec MV Decel [place] 2 MV E/A 0.6 TR Peak [place] 1.9 m/sec TR Peak PG 14.3 mmHg Findings Left Ventricle: Normal left ventricular cavity size. Mild concentric left ventricular hypertrophy. Moderate left ventricular systolic dysfunction. Ejection fraction is visually estimated at 40 %. Tissue Doppler/Mitral Doppler indices are within normal limits. Severe hypokinesis/akinesis of the mid to distal septum and apex. Anterior wall is not well seen. Right Ventricle: Normal right ventricular size. Normal right ventricular systolic function. Left Atrium: The left atrium is normal in size. Right Atrium: The right atrium is normal in size. Mitral Valve: Normal appearance and function of the mitral valve with trace physiologic regurgitation. Aortic Valve: Normal appearance of the aortic valve. No significant aortic stenosis or insufficiency. Tricuspid Valve: Unable to obtain RVSP due to minimal presence of tricuspid regurgitation. No evidence of tricuspid regurgitation. Pericardium: Normal pericardium with no significant pericardial effusion. Aorta: Normal aortic root. IVC: Normal size and normal respiratory collapse consistent with normal right atrial pressure. Conclusions Technically difficult study with poor endocardial visualization. Normal left ventricular cavity size. Mild concentric left ventricular hypertrophy. Moderate left ventricular systolic dysfunction. Ejection fraction is visually estimated at 40 %. Tissue Doppler/Mitral Doppler indices are within normal limits. Severe hypokinesis/akinesis of the mid to distal septum and apex. Anterior wall is not well seen. No significant valvular stenosis or regurgitation seen. Unable to obtain RVSP due to minimal presence of tricuspid regurgitation. Normal size and normal respiratory collapse consistent with normal right atrial pressure. Electronically Signed By: Chito Hamm 28-Jan-2017 10:00:45 -0800 Patient Name: ELSA CLARKE Study Date: 28-Jan-2017 [id number]
[2017-01-28] MEDS: DIAZEPAM 5 MG/ML SYG IV PRN ×2 (11:00→16:19)
[2017-01-28] MEDS ORDERED: LEVOTHYROXINE 150 MCG TAB PO ONE (11:00)
[2017-01-28] MEDS: KETOROLAC 30 MG INJ IV PRN ×3 (11:00→23:07)
[2017-01-28] MEDS: LOSARTAN 25 MG TAB PO SCH (11:35)
[2017-01-28] MEDS ORDERED: ATORVASTATIN 80 MG TAB PO SCH (21:00)
[2017-01-29] VITALS (9 sets, daily range): BP systolic 109–126; BP diastolic 67–75; PULSE 58–71; RESP 18
[2017-01-29] MEDS: morphine 2 MG INJ IV PRN ×2 (02:46→13:31)
[2017-01-29] MEDS: PANTOPRAZOLE 40 MG INJ IV SCH ×2 (06:00→06:11)
[2017-01-29] MEDS ORDERED: LEVOTHYROXINE 150 MCG TAB PO SCH (06:00)
[2017-01-29] MEDS: KETOROLAC 30 MG INJ IV PRN (06:11)
[2017-01-29] MEDS: CLOPIDOGREL 75 MG TAB PO SCH (08:38)
[2017-01-29] MEDS: ASPIRIN 81 MG TAB PO SCH (08:38)
[2017-01-29] MEDS: LOSARTAN 25 MG TAB PO SCH (08:39)
[2017-01-29] MEDS ORDERED: DIAZEPAM 2 MG TAB PO PRN (09:30)
[2017-01-29] MEDS ORDERED: LORA1TAB PO (14:46)
[2017-01-29] MEDS ORDERED: LOSA25TA2 PO (14:46)
[2017-01-29] MEDS ORDERED: CLOP75TA28 PO (14:46)
[2017-01-29] MEDS ORDERED: ASPI81TA3 PO (14:46)
[2017-01-29] MEDS ORDERED: ATOR80TA75 PO (14:46)
[2017-01-29] MEDS ORDERED: CARV6.2579 PO (14:46)
--- NOTE | 2017-01-29 14:47 | PDOCDIS ---
Discharge Instructions CONDITION Patient Condition: Good HOME CARE INSTRUCTIONS: Diet Instructions: Reduced Sodium ACTIVITY: Activity Restrictions: Slowly Increase Activity FOLLOW UP/APPOINTMENTS Follow-up Plan F/U WITH A PCP IN 1-2 WEEKS EVERTON NÚÑEZ Jan 29, 2017 14:47
--- NOTE | 2017-01-29 15:38 | CONS ---
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 Denies shortness of breath. Troponin continues to downtrend. Detailed Summary Additional Comments 14 point review of systems without changes. Exam/Review of Systems Vital Signs Vitals Vital Signs Date Time Temp Pulse Resp B/P Pulse Ox O2 Delivery O2 Flow Rate FiO2 01/29/17 15:14 99.2 73 18 126/75 95 01/29/17 12:00 Nasal Cannula 2.0 Intake and Output 01/28/17 01/28/17 01/29/17 15:00 23:00 07:00 Intake Total 850 ml Output Total 350 ml Balance 500 ml Exam Constitutional: alert, oriented Head: atraumatic, normocephalic Neck: No jvd Respiratory: crackles/rales, No clear to auscultation (mild crackles ) Cardiovascular: regular rate and rhythm, No edema, No systolic murmur Gastrointestinal: non-tender, soft Extremities: normal pulses Neurological: nl mental status, nl speech Results Result Diagram: 01/29/17 0639 01/29/17 0638 Results 24 hrs Laboratory Tests Test 01/29/17 06:38 01/29/17 06:39 Sodium Level 139 Potassium Level 4.0 Chloride Level 103 Carbon Dioxide Level 32 H Anion Gap 8 Blood Urea Nitrogen 25 H Creatinine 1.10 Glucose Level 108 Calcium Level 8.8 Magnesium Level 2.0 Total Bilirubin 0.6 Direct Bilirubin 0.00 Indirect Bilirubin 0.6 Aspartate Amino Transf (AST/SGOT) 108 #H Alanine Aminotransferase (ALT/SGPT) 59 Alkaline Phosphatase 75 Troponin I 23.800 *H Total Protein 6.7 Albumin 3.3 Globulin 3.40 H Albumin/Globulin Ratio 0.97 Triglycerides Level 80 Cholesterol Level 169 LDL Cholesterol, Calculated 109 HDL Cholesterol 44 Cholesterol/HDL Ratio 3.8 White Blood Count 12.2 H Red Blood Count 5.20 Hemoglobin 15.2 Hematocrit 45.3 Mean Corpuscular Volume 87.1 Mean Corpuscular Hemoglobin 29.2 Mean Corpuscular Hemoglobin Concent 33.6 Red Cell Distribution Width 13.4 Platelet Count 198 Mean Platelet Volume 11.5 H Neutrophils % 71.6 Lymphocytes % 14.9 L Monocytes % 12.9 H Eosinophils % 0.0 Basophils % 0.3 Nucleated Red Blood Cells % 0.0 Neutrophils # 8.7 H Lymphocytes # 1.8 Monocytes # 1.6 H Eosinophils # 0.0 Basophils # 0.0 Nucleated Red Blood Cells # 0.0 Medications Medications Current Medications Morphine Sulfate (morphine) 2 mg Q2H PRN IV FOR NON CARDIAC PAIN (4-10) Last administered on 01/29/17 13:31; Admin Dose 2 MG; Start 01/28/17 at 00:00 Aspirin (Aspirin) 81 mg DAILY PO Last administered on 01/29/17 08:38; Admin Dose 81 MG; Start 01/28/17 at 09:00 Clopidogrel Bisulfate (plaVIX) 75 mg DAILY PO Last administered on 01/29/17 08 :38; Admin Dose 75 MG; Start 01/28/17 at 09:00 Acetaminophen (Tylenol Liquid) 650 mg Q6H PRN PO PAIN LEVEL 1-3 OR FEVER; Start 01/28/17 at 01:00 Pantoprazole (Protonix Iv) 40 mg DAILY@06 IV Last administered on 01/28/17 06: 05; Admin Dose 40 MG; Start 01/28/17 at 06:00 Carvedilol (Coreg) 6.25 mg BID PO Last administered on 01/29/17 08:41; Admin Dose 6.25 MG; Start 01/28/17 at 09:00 Atorvastatin Calcium (Lipitor) 80 mg HS PO Last administered on 01/28/17 22:00 ; Admin Dose 80 MG; Start 01/28/17 at 21:00 Losartan Potassium (Cozaar) 25 mg DAILY PO Last administered on 01/29/17 08:39 ; Admin Dose 25 MG; Start 01/28/17 at 09:30 Ketorolac Tromethamine (Toradol) 30 mg Q6H PRN IV PAIN Last administered on 06:11; Admin Dose 30 MG; Start 01/28/17 at 11:00; Stop 01/31/17 at 10:59 Levothyroxine Sodium (Synthroid) 150 mcg DAILY@06 PO ; Start 01/29/17 at 06:00 Diazepam (Valium) 2 mg Q8H PRN PO ANXIETY Last administered on 01/29/17 13:30 ; Admin Dose 2 MG; Start 01/29/17 at 09:30 MICHAEL MONTILLA MD Jan 29, 2017 15:38
--- NOTE | 2017-01-29 17:46 | DS ---
Date/Time of Note Date/Time of Note DATE: 01/29/17 TIME: 17:41 Discharge Summary Admission/Discharge Info Admit Date/Time Jan 28, 2017 at 00:05 Discharge Date/Time Jan 29, 2017 at 17:15 Discharge Diagnosis 1. Lateral STEMI: Likely due to amphetamines, no obstructive lesions on coronary angiography DC with aspirin Plavix statin ARB and beta-cecile 2. Nonobstructive CAD 3. Ischemic cardiomyopathy: EF 40-45% with LAD territory WMA on echocardiogram and ventriculogram DC with beta-cecile and Cozaar 4. 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 HTN DC with BP meds 6. Amphetamine abuse Cessation advised Patient Condition: Good Hospital Course Patient is a 56-year-old male with a history of hypertension and traumatic aortic dissection requiring a thoracotomy while playing football when he was younger who presented with several hours of left-sided chest pain with lightheadedness, diaphoresis, nausea and dyspnea. Patient had a 12-lead that was concerning for STEMI with ST elevations in V1 and 2. STEMI protocol was initiated and patient was taken to the [employer] by the [facility] farmer on-call. [employer] report: No obstructive lesions were found but likely a real event as slightly slow flow in LAD with LV gram showing LAD territory wall motion abnormalities and troponin eventually 49, which would be consistent with either spontaneous recannulization or spasm. Patient was monitored in ICU where his troponins continue to trend down, U tox did show marijuana and amphetamines, patient denies using amphetamines and states that it must have been through secondhand exposure. Patient was very anxious to be discharged he states that his car was towed, patient was felt to be stable for DC and was told about the importance of medication compliance and not using amphetamines. On the day of discharge patient vitals, labs physical exam stable he had no further acute complaints and no further complaints of chest pain, his questions were answered. Patient was also advised that he needs a primary care physician and he stated that he will find a PCP. Home Meds Active Scripts Lorazepam* (Lorazepam*) 1 Mg Tablet, 1 MG PO Q8 Y for ANXIETY, #30 TAB Prov:EVERTON NÚÑEZ 01/29/17 Clopidogrel Bisulfate (Clopidogrel) 75 Mg Tablet, 75 MG PO DAILY, #90 TAB 1 Refill Prov:EVERTON NÚÑEZ 01/29/17 Losartan Potassium* (Cozaar*) 25 Mg Tablet, 25 MG PO DAILY, #60 TAB 1 Refill Prov:EVERTON NÚÑEZ 01/29/17 Aspirin (Aspirin) 81 Mg Chew, 81 MG PO DAILY, #90 TAB 1 Refill Prov:EVERTON NÚÑEZ 01/29/17 Carvedilol* (Carvedilol*) 6.25 Mg Tablet, 6.25 MG PO BID, #60 TAB 1 Refill Prov:EVERTON NÚÑEZ 01/29/17 Atorvastatin* (Atorvastatin*) 80 Mg Tablet, 80 MG PO HS, #60 TAB 1 Refill Prov:EVERTON NÚÑEZ 01/29/17 Follow-up Plan F/U WITH A PCP IN 1-2 WEEKS Primary Care Provider Care Physician No Primary Time spent on discharge: > 30 minutes EVERTON NÚÑEZ Jan 29, 2017 17:46
[2017-01-30] MEDS ORDERED: PANTOPRAZOLE (EC) 40 MG TAB PO SCH (06:00)
--- NOTE | 2017-01-30 15:34 | RADRPT ---
Vent Rate: 66 bpm RR Interval: 0 msec [place] Interval: 160 msec QRS Duration: 86 msec QT Interval: 408 msec QTC Interval: 427 msec P-R-T [place]: 28 - 91 - 69 degrees Normal sinus rhythm Septal infarct , age undetermined Lateral infarct , age undetermined Abnormal ECG Electronically Signed By: Waldemar Maki [id number]
--- NOTE | 2017-01-30 15:34 | RADRPT ---
Vent Rate: 66 bpm RR Interval: 0 msec [place] Interval: 160 msec QRS Duration: 86 msec QT Interval: 408 msec QTC Interval: 427 msec P-R-T [employer]: 28 - 91 - 69 degrees Normal sinus rhythm Septal infarct , age undetermined Lateral infarct , age undetermined Abnormal ECG Electronically Signed By: Waldemar Maki [id number]
--- NOTE | 2017-01-30 15:34 | RADRPT ---
Vent Rate: 66 bpm RR Interval: 0 msec [place] Interval: 160 msec QRS Duration: 86 msec QT Interval: 408 msec QTC Interval: 427 msec P-R-T [place]: 28 - 91 - 69 degrees Normal sinus rhythm Septal infarct , age undetermined Lateral infarct , age undetermined Abnormal ECG Electronically Signed By: Waldemar Maki [id number]
== END 2017-01-29 17:15 | disposition home or self-care (01) | DRG 282 ==
LOC: E/R 22:19 → EDBD 22:19 → ICU 01-28 00:05 → TEL 01-28 14:05
PROVIDERS: ADMIT Family Medicine; ATTEND Family Medicine
PROC: B211YZZ Fluoroscopy of Multiple Coronary Arteries using Other Contrast (ICD-10-PCS; 2017-01-27)
PROC: B215YZZ Fluoroscopy of Left Heart using Other Contrast (ICD-10-PCS; 2017-01-27)
PROC: 4A023N7 Measurement of Cardiac Sampling and Pressure, Left Heart, Percutaneous Approach (ICD-10-PCS; principal; 2017-01-27 23:00)
DX: I21.29 ST elevation (STEMI) myocardial infarction involving other sites (principal); I10 Essential (primary) hypertension; I25.10 Atherosclerotic heart disease of native coronary artery without angina pectoris; I25.5 Ischemic cardiomyopathy; Z86.79 Personal history of other diseases of the circulatory system; Z98.890 Other specified postprocedural states; Z79.82 Long term (current) use of aspirin; E03.9 Hypothyroidism, unspecified; F17.210 Nicotine dependence, cigarettes, uncomplicated; F15.10 Other stimulant abuse, uncomplicated; Z79.02 Long term (current) use of antithrombotics/antiplatelets
CPT/HCPCS: 71275; 80048; 80053; 80061; 80307; 82550; 82553; 83036; 83735; 84443; 84484; 85025; 87081; 93005; 93306; 93458; C1887; C9113; J1644; J1885; J2250; J2270; J3010; J3360; J7030; J7040; Q9967

== ENCOUNTER 2017-02-01 01:02 | Emergency (ER) | END 2017-02-01 02:55 | disposition left against medical advice (07) | DX: I21.3 ST elevation (STEMI) myocardial infarction of unspecified site (principal); I25.10 Atherosclerotic heart disease of native coronary artery without angina pectoris; I10 Essential (primary) hypertension; Z79.82 Long term (current) use of aspirin; Z79.01 Long term (current) use of anticoagulants; Z87.891 Personal history of nicotine dependence ==